=== PATIENT | male | born 1965 | race Caucasian/White ===

== ENCOUNTER → 2017-04-29 | Outpatient (CLI) | payer OTHER ==
[~2017-04-29] MED LIST: GABA-113 PO; LEVO175T3 PO
[2017-04-29 17:45] LABS: BASO % 0.3 %; BASO ABS # 0.02 K/uL (0-0.2); COMPLETE YES; EOS % 2.1 %; HEMATOCRIT 45.3 % (42-52); IG% 0.3 %; LYMPH % 22.3 %; LYMPH ABS # 1.77 K/uL (1.2-3.4); MEAN CORPUSCULAR HEMOGLOBIN 31.5 pg (25-34); MEAN CORPUSCULAR HGB CONC 34.7 g/dl (32-36); MONO % 9.1 %; NEUT % 65.9 %; PLATELET COUNT 211 K/uL (130-400); RED BLOOD COUNT 4.98 M/uL (4.7-6.1); WHITE BLOOD COUNT 7.93 K/uL (4.8-10.8)
[2017-04-29 17:53] LABS: ALT/SGPT 43 U/L (12-78); AST/SGOT 27 U/L (15-37); BLOOD UREA NITROGEN 17 mg/dl (7-18); BUN/CREATININE RATIO 15.5 (10-20); CARBON DIOXIDE 26 mmol/L (21-32); CHLORIDE 107 mmol/L (98-107); CREATININE 1.12 mg/dl (0.60-1.40); GLUCOSE 85 mg/dl (70-99); POTASSIUM 4.2 mmol/L (3.5-5.1); SODIUM 139 mmol/L (136-145)
[2017-04-29 18:03] LABS: ALB/GLOB RATIO 1.2 (0.9-2); ALKALINE PHOSPHATASE 77 U/L (45-117)
== END | disposition home or self-care (01) ==
LOC: C.LABSPEC 17:34
PROVIDERS: ATTEND Internal Medicine
DX: R53.83 Other fatigue (principal); E03.9 Hypothyroidism, unspecified

== ENCOUNTER 2017-05-18 12:33 | Day surgery (SDC) | payer OTHER ==
[~2017-05-18] VITALS: Ht 190.5 cm; Wt 109.1 kg
[~2017-05-18 12:33] MED LIST changes: +CEFAZOLIN 2000MG IV PUSH 10 ML IV SCH; -GABA-113 PO; +GLUC15002 PO; +LACTATED RINGER'S 1000ML 1,000 ML IV SCH; +LEVO125T72 PO; -LEVO175T3 PO; +VITACAP26 PO; +ZINC1TAB PO
[2017-05-18 12:55] VITALS: BP 145/88; PULSE 55; TEMP 36.8; O2SAT 98; Ht 190.5 cm; Wt 109.1 kg
--- NOTE | 2017-05-18 14:36 | History & Physical Bridge Note ---
H&P Re-Evaluation Bridge Note: I have examined the patient, reviewed the History & Physical and in the interval since the performance of the History & Physical I have noted the following changes of clinical significance: No changes noted
[2017-05-18] MEDS ORDERED: MIDAZOLAM HCL 1 MG/ML 2ML VIAL ONE (14:51)
[2017-05-18] MEDS ORDERED: FENTANYL CITRATE INJ 50 MCG/1 ML 2 ML VIAL ONE ×2 (14:51→16:40)
[2017-05-18] MEDS ORDERED: LIDOCAINE HCL 2% 2 ML VIAL (20MG/ML) ONE (15:31)
[2017-05-18] MEDS ORDERED: NEOSTIGMINE METHYLSULFATE 5 MG/5 ML SYR ONE (15:31)
[2017-05-18] MEDS ORDERED: ONDANSETRON INJ 2 MG/ML 2 ML VIAL ONE (15:31)
[2017-05-18] MEDS ORDERED: LARYING-O-JET KIT (LTA) ONE ×2 (15:31)
[2017-05-18] MEDS ORDERED: GLYCOPYRROLATE INJ 0.2 MG/ML VIAL ONE ×2 (15:31→16:47)
[2017-05-18] MEDS ORDERED: PROPOFOL IV EMULSION 10 MG/ML 20 ML VIAL IV ONE (15:31)
[2017-05-18] MEDS ORDERED: ROCURONIUM BROMIDE 10 MG/ML 5 ML VIAL IV ONE (15:31)
[2017-05-18] MEDS ORDERED: BUPIVACAINE 0.5 % 5 MG/1 ML MPF 30ML VIAL ONE (16:09)
[2017-05-18] MEDS ORDERED: OXYC-57 PO (16:14)
[2017-05-18] MEDS ORDERED: FENTANYL CITRATE INJ 50 MCG/1 ML 2 ML VIAL IV PRN (16:15)
[2017-05-18] MEDS ORDERED: ONDANSETRON INJ 2 MG/ML 2 ML VIAL IV PRN ×2 (16:15→17:45)
[2017-05-18] MEDS ORDERED: PROMETHAZINE HCL INJ 6.25 MG in SODIUM CHLORIDE 0.9% 50ML 50 ML IV PRN (16:15)
[2017-05-18] MEDS ORDERED: ATROPINE SULFATE 0.1 MG/ML 5ML SYR IV PRN (16:15)
[2017-05-18] MEDS ORDERED: EpHEDrine SULFATE INJ 50 MG/ML AMP IV PRN (16:15)
[2017-05-18] MEDS ORDERED: HYDROmorphone INJ 1 MG/ML SYR IV PRN (16:15)
--- NOTE | 2017-05-18 16:16 | Discharge Instructions ---
Discharge Instructions Date of Service May 18, 2017. Visit Reason for Visit: Left Inguinal Hernia, Umbilical Hernia Discharge Discharge Diagnosis / Problem: repair of hernia Discharge Goals Goal(s): Decrease discomfort Activity Recommendations Activity Limitations: as noted below Lifting Limitations: no more than 10 pounds Shower/Bathe: tomorrow Driving or Machine Use: 1 week Anesthesia . Post Anesthesia Instructions: If you have had General Anesthesia or IV Sedation: * Do not drive today. * Resume driving when surgeon permits. * Do not make important decisions or sign legal documents today. * Call surgeon for: 1. Temperature elevations greater than 101 degrees F. 2. Uncontrollable pain. 3. Excessive bleeding. 4. Persistent nausea and vomiting. 5. Medication intolerance (nausea, vomiting or rash). * For nausea and vomiting use only clear liquids such as: tea, soda, bouillon until nausea subsides, then gradually increase diet as tolerated. * If you have any concerns or questions, call your surgeon's office. If physician is unavailable and it is an emergency, call 911 or go to the nearest emergency room. . Instructions / Follow-Up Instructions / Follow-Up Dr. Hogan in 1-2 weeks as planned, call [phone] for any questions or to schedule Diet Recommendations Recommended Home Diet: no limitations Pending Studies Studies pending at discharge: no Medical Emergencies . Who to Call and When: Medical Emergencies: If at any time you feel your situation is an emergency, please call 911 immediately. . Non-Emergent Contact Non-Emergency issues call your: Surgeon Call Non-Emergent contact if: you have a fever, temperature is above 101.5, your pain is not controlled, wound has increased pain, you have any medication questions . . "Provider Documentation" section prepared by Jean-Paul Beltran. .
[2017-05-18] MEDS ORDERED: EpHEDrine SULFATE INJ 50 MG/ML AMP ONE ×2 (16:35→16:54)
[2017-05-18] MEDS ORDERED: KETOROLAC TROMETHAMINE 30 MG/ML VIAL ONE (16:45)
--- NOTE | 2017-05-18 17:44 | [facility] Post Operative Brief Note ---
Immediate Operative Summary Operative Date May 18, 2017. Pre-Operative Diagnosis Left inguinal hernia and umbilical hernia Post-Operative Diagnosis Indirect left inguinal hernia, umbilical hernia Procedure(s) Performed Left Laparoscopic Inguinal Hernia Repair with mesh, Umbilical Hernia Repair (primary repair) Surgeon Dr Luis F Hogan Flattening Machine Operator Surgeon(s) Phil Carr PA-C Estimated Blood Loss 4 ml Findings Medium-sized indirect left inguinal hernia, no evidence of inguinal hernia on the right. Progrip mesh placed on the left. 1 cm umbilical hernia, repaired primarily. Specimens none per surgeon Drains NOne Anesthesia GETA Complication(s) None Disposition Recovery Room / PACU
[2017-05-18] MEDS ORDERED: OXYCODONE/ACETAMINOPHEN 5-325 TAB PO PRN (17:45)
[2017-05-18] MEDS ORDERED: LACTATED RINGER'S 1000ML 1,000 ML IV SCH (17:45)
[2017-05-18] MEDS ORDERED: MoRPHine SULFATE 4 MG/ML 1 ML CARP\\VIAL IV PRN (17:45)
--- NOTE | 2017-05-18 17:53 | [facility] Operative Report ---
Operative Report Operative Date May 18, 2017. Pre-Operative Diagnosis Left inguinal hernia and umbilical hernia Post-Operative Diagnosis Indirect left inguinal hernia, umbilical hernia Procedure(s) Performed laparoscopic (TEP) left inguinal hernia repair with mesh, Primary repair umbilical hernia Surgeon Dr Luis F Hogan Real Estate Processor Surgeon(s) Phil Carr PA-C Estimated Blood Loss 4 ml Findings Medium-sized indirect left inguinal hernia, no evidence of inguinal hernia on the right. Progrip mesh placed on the left. 1 cm umbilical hernia, repaired primarily. Specimens none per surgeon Drains NOne Anesthesia GETA Complication(s) None Disposition Recovery Room / PACU Indications 52-year-old male with left inguinal hernia and umbilical hernia, plan for laparoscopic left inguinal hernia repair, possible right, open umbilical hernia repair, possibly with mesh. The risks of the procedure were discussed, all questions were answered, and the patient agreed to proceed with surgery as planned. Description of Procedure The patient was properly identified, consented, and taken to the operating room where he was placed in the supine position. General endotracheal anesthesia was induced. SCDs and a safety belt were placed. A watson catheter was placed. Preoperative antibiotics were administered. The patient's groins and abdomen were prepped and draped in the standard sterile fashion. Surgical timeout was performed and all parties were in agreement that this was the correct patient and procedure to be performed and we continued as planned. A curvilinear infraumbilical incision was made with electrocautery and deepened down to the fascia with blunt dissection. A transverse incision was made in the anterior rectus sheath on the right. The rectus muscle was pulled laterally exposing the posterior rectus sheath. A large Jolly was used to bluntly dissect the preperitoneal space down to the pubic symphysis. This was then replaced with a laparoscopic preperitoneal dissection balloon, which was inflated under direct visualization and held in place for approximately 30 seconds. This was then removed and the preperitoneal space was insufflated with carbon dioxide which the patient tolerated without incident. Two 3 mm ports were then placed in the midline. Dissection started on the left, beginning laterally at the anterior superior iliac spine. London's ligament was then dissected medially. The cord structures were circumferentially dissected. A medium sized indirect inguinal hernia was noted. It was dissected away from the cord structures. The contralateral side was then dissected in a similar manner, and no hernia was noted. Progrip mesh was placed on the left and covered the direct, indirect, and femoral spaces. The mesh was held in place, the ports were removed, and the space was allowed to collapse. The anterior rectus sheath fascia was closed with 0 Vicryl suture. Attention then turned to the umbilical hernia. The umbilical stalk was circumferentially dissected with a Jolly, and divided below the level of the skin. A 1 cm fascial defect was encountered. The hernia was reduced. The fascia anteriorly and posteriorly was cleared of investing tissue for several centimeters. Hemostasis was achieved within the wound. The hernia defect was closed primarily with interrupted 0 Nurolon sutures. The wound was irrigated and hemostasis confirmed. The umbilicus was tacked down to the fascia with 3-0 Vicryl sutures. Local anesthetic in the form of 0.5% Marcaine was injected in the fascia and along the skin incision. The skin was closed with interrupted 3- 0 Vicryl deep dermal sutures, followed by 4-0 Monocryl running subcuticular suture. Dermabond was placed over the wound. The 3 mm port sites were closed with Dermabond. The patient was extubated in the operating room and taken to the PACU for recovery without apparent incident. Any air in the scrotum was reduced, and the testicles were confirmed to be in the scrotum. All sponge, instrument, and needle counts were correct at the conclusion of the procedure. The patient tolerated the procedure well. I attest to the content of the Intraoperative Record and any orders documented therein. Any exceptions are noted below.
--- NOTE | 2017-05-18 19:02 | Anesthesiology Progress Note ---
Anesthesia Post Op Note Date & Time May 18, 2017 at 19:02 Vital Signs Pain Intensity: 0 Vital Signs Past 12 Hours Date Time Temp Pulse Resp B/P (MAP) Pulse Ox O2 Delivery O2 Flow Rate FiO2 05/18/17 18:59 65 22 05/18/17 18:59 68 22 95 05/18/17 18:56 132/86 05/18/17 18:54 58 20 05/18/17 18:54 58 20 96 05/18/17 18:51 132/86 05/18/17 18:49 55 20 05/18/17 18:49 54 20 95 05/18/17 18:48 55 24 93 05/18/17 18:48 55 24 05/18/17 18:46 125/87 05/18/17 18:43 52 15 05/18/17 18:43 36.2 05/18/17 18:43 53 15 92 05/18/17 18:41 124/83 05/18/17 18:38 57 12 98 05/18/17 18:38 58 12 05/18/17 18:37 58 16 98 05/18/17 18:37 60 16 05/18/17 18:36 124/88 05/18/17 18:32 58 14 05/18/17 18:32 59 14 129/87 97 05/18/17 18:27 59 13 05/18/17 18:27 59 13 129/84 98 05/18/17 18:26 59 14 05/18/17 18:26 60 14 98 05/18/17 18:21 65 13 132/83 96 05/18/17 18:21 61 13 05/18/17 18:16 64 13 05/18/17 18:16 64 13 124/89 96 05/18/17 18:15 59 19 97 05/18/17 18:15 58 19 05/18/17 18:11 128/88 05/18/17 18:10 60 16 94 05/18/17 18:10 57 16 05/18/17 18:06 128/83 05/18/17 18:05 73 14 05/18/17 18:05 73 14 100 05/18/17 18:03 114/56 05/18/17 18:00 53 13 100 05/18/17 18:00 54 13 05/18/17 17:56 128/83 05/18/17 17:55 36.2 61 14 128/83 100 Oxymask 10 05/18/17 17:55 60 16 05/18/17 17:55 60 16 96 05/18/17 12:55 36.8 55 18 145/88 (107) 98 Room Air Notes Mental Status: alert / awake / arousable, participated in evaluation Pt Amnestic to Procedure: Yes Nausea / Vomiting: adequately controlled Pain: adequately controlled Airway Patency, RR, SpO2: stable & adequate BP & HR: stable & adequate Hydration State: stable & adequate Anesthetic Complications: no major complications apparent
[2017-05-18 19:08] VITALS: BP 131/77; PULSE 70; TEMP 36.2; O2SAT 93
[2017-05-18 19:38] VITALS: BP 132/87; PULSE 58; TEMP 36.3; O2SAT 95
== END 2017-05-18 19:44 | disposition home or self-care (01) ==
LOC: C.ACU 12:33
PROVIDERS: ATTEND Surgery
DX: K40.90 Unilateral inguinal hernia, without obstruction or gangrene, not specified as recurrent (principal); K42.9 Umbilical hernia without obstruction or gangrene; E04.1 Nontoxic single thyroid nodule; Z79.899 Other long term (current) drug therapy